=== PATIENT | female | born 2000 | race Two or more races ===

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

== ENCOUNTER 2024-05-23 19:28 | Emergency (ER) | payer OTHER ==
[2024-05-23 19:34] VITALS: BP 138/98; PULSE 80; RESP 16; TEMP 98.2; BMI 20.5
== END 2024-05-23 19:58 | disposition home or self-care (01) ==
LOC: FER 19:28
DX: R50.9 Fever, unspecified (principal); J39.8 Other specified diseases of upper respiratory tract; B97.89 Other viral agents as the cause of diseases classified elsewhere; M79.10 Myalgia, unspecified site; R09.81 Nasal congestion; R05.9 Cough, unspecified; R43.0 Anosmia; R43.2 Parageusia; Z20.822 Contact with and (suspected) exposure to COVID-19
CPT/HCPCS: 0241U-QW; 99283-25